=== PATIENT | female | born 1990 | race Caucasian/White ===

== ENCOUNTER 2017-10-17 15:27 | Emergency (ER) | payer OTHER ==
--- NOTE | 2017-10-17 15:35 | PDOC ---
Rapid Medical Evaluation Time Seen by Provider: 10/17/17 15:32 Medical Evaluation: Allergies Allergy/AdvReac Type Severity Reaction Status Date / Time PEANUTS Allergy Difficulty Uncoded 10/28/14 13:13 Breathing I have performed a brief in-person evaluation of this patient. The patient presents with a chief complaint of: upper abdominal pain after eating x a few months; patient is [address] Jeong wants her gallbladder ultrasounded Pertinent physical exam findings: none I have ordered the following: labs, gallbladder ultrasound The patient will proceed to the ED for further evaluation.
[2017-10-17 15:37] VITALS: TEMP 98.3; BMI 34.7
--- NOTE | 2017-10-17 16:44 | PDOC ---
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 Jeong, for evaluation of right upper quadrant pain for approximately 1 month. The patient reports first noticing RUQ pain about 1 month ago after eating. Patient describes her pain as a pressure, intermittent, and nonradiating, which she rates an 8/10. Patient reports her episodes typically last 1 hour. Patient reports visiting her OB yesterday, where she brought up her RUQ pain. Today, patient reports speaking to Dr. Jeong, who recommended patient follow up in the ED for an US of her gallbladder. Patient denies any associated nausea, vomiting, diarrhea, or constipation. She denies any flank pain, dysuria, hematuria, frequency, urgency , vaginal bleeding or discharge. She denies any recent fever, chills, or joint aches. She denies any chest pain, shortness of breath, diaphoresis, palpitations , or lower extremity edema. She denies any recent travel or sick contacts Allergies: NKDA Past Surgical History: None reported. Social History: Non smoker. No ETOH or recreational drug use. OBGYN: Dr. Jeong <Papito Salcedo - Last Filed: 10/17/17 18:34> <Vika Rodriguez - Last Filed: 10/17/17 18:51> - General Chief Complaint: Pain Stated Complaint: RUQ PAIN 25 WKS PREG ABD PAIN Time Seen by Provider: 10/17/17 15:32 Past History <Papito Salcedo - Last Filed: 10/17/17 18:34> - Past Medical History Asthma: Yes COPD: No - Immunization History Immunization Up to Date: No - Suicide/Smoking/Psychosocial Hx Smoking Status: No Smoking History: Never smoked Have you smoked in the past 12 months: No Number of Cigarettes Smoked Daily: 0 Information on smoking cessation initiated: No Hx Alcohol Use: No Drug/Substance Use Hx: No Substance Use Type: None <Vika Rodriguez - Last Filed: 10/17/17 18:51> - Past Medical History Allergies/Adverse Reactions: Allergies Allergy/AdvReac Type Severity Reaction Status Date / Time PEANUTS Allergy Difficulty Uncoded 10/17/17 15:32 Breathing Home Medications: Ambulatory Orders NK [No Known Home Medication] 10/17/17 Review of Systems - Review of Systems Able to Perform ROS?: Yes Comments:: 10/17/17 17:06 GENERAL/CONSTITUTIONAL: No fever or chills. No weakness. HEAD, EYES, EARS, NOSE AND THROAT: No change in vision. No ear pain or discharge. No sore throat. CARDIOVASCULAR: No chest pain or shortness of breath. RESPIRATORY: No cough, wheezing, or hemoptysis. GASTROINTESTINAL: +Right upper quadrant pain. No nausea, vomiting, diarrhea or constipation. GENITOURINARY: No dysuria, frequency, or change in urination. MUSCULOSKELETAL: No joint or muscle swelling or pain. No neck or back pain. SKIN: No rash NEUROLOGIC: No headache, vertigo, loss of consciousness, or change in strength/ sensation. ENDOCRINE: No increased thirst. No abnormal weight change. HEMATOLOGIC/LYMPHATIC: No anemia, easy bleeding, or history of blood clots. ALLERGIC/IMMUNOLOGIC: No hives or skin allergy. <Papito Salcedo - Last Filed: 10/17/17 18:34> *Physical Exam - Vital Signs Last Vital Signs Temp Pulse Resp BP Pulse Ox 98.3 F 99 H 18 114/59 100 10/17/17 15:33 10/17/17 15:33 10/17/17 15:33 10/17/17 15:33 10/17/17 15:33 - Physical Exam Comments: 10/17/17 17:06 GENERAL: Awake, alert, and fully oriented, in no acute distress HEAD: No signs of trauma EYES: PERRLA, EOMI, sclera anicteric, conjunctiva clear ENT: Auricles normal inspection, hearing grossly normal, nares patent, oropharynx clear without exudates. Moist mucosa NECK: Normal ROM, supple, no lymphadenopathy, JVD, or masses LUNGS: Breath sounds equal, clear to auscultation bilaterally. No wheezes, and no crackles HEART: Regular rate and rhythm, normal S1 and S2, no murmurs, rubs or gallops ABDOMEN: Tenderness to palpation to the right upper quadrant, but no guarding or rebound. Soft, normoactive bowel sounds. No masses EXTREMITIES: Normal range of motion, no edema. No clubbing or cyanosis. No cords, erythema, or tenderness NEUROLOGICAL: Cranial nerves II through XII grossly intact. Normal speech, normal gait SKIN: Warm, Dry, normal turgor, no rashes or lesions noted. <SalcedoTrishjennifer - Last Filed: 10/17/17 18:34> - Vital Signs Last Vital Signs Temp Pulse Resp BP Pulse Ox 98.3 F 99 H 18 114/59 100 10/17/17 15:33 10/17/17 15:33 10/17/17 15:33 10/17/17 15:33 10/17/17 15:33 <Vika Rodriguez - Last Filed: 10/17/17 18:51> ED Treatment Course - LABORATORY CBC & Chemistry Diagram: 10/17/17 17:50 10/17/17 17:50 - RADIOLOGY Radiograph Interpretation: 10/17/17 18:34 EXAM: US INTERPRETED BY: Dr. Munroe REVIEWED BY: Dr. Rodriguez IMPRESSION: 1. A single live intrauterine gestation with sonographic biometry concordant with the provided estimated gestational age. 2. The brain and ventricles are not visualized. This could be because of technical limitation. Please correlate with dedicated anatomy survey to better evaluate the intracranial anatomy. EXAM: US Gallbladder INTERPRETED BY: Dr. Munroe REVIEWED BY: Dr. Rodriguez IMPRESSION: The liver is normal in size, measuring 12.2 cm in length with normal hepatic echotexture. No discrete hepatic mass lesion identified. The gallbladder is not hydropic. No evidence of cholelithiasis, gallbladder wall thickening or pericholecystic fluid. There is no evidence of intrahepatic or extrahepatic biliary ductal dilatation. A proximal extrahepatic bile duct measures 3 mm in diameter. The pancreas is obscured by bowel gas and cannot be assessed. The right kidney is normal in size measuring 9.7 cm in length with normal cortical echotexture and no hydronephrosis. No free fluid identified in the right upper quadrant of the abdomen. The portal vein is patent, where imaged , with hepatopedal flow. The the upper abdominal aorta and IVC are not visualized. SUMMARY: No evidence of cholelithiasis, acute cholecystitis or biliary ductal dilatation. <Papito Salcedo - Last Filed: 10/17/17 18:34> - LABORATORY CBC & Chemistry Diagram: 10/17/17 17:50 10/17/17 17:50 - RADIOLOGY Radiology Studies Ordered: Category Date Time Status US(SINGLE) [US] Stat Ultrasound 10/17/17 16:37 Ordered <Vika Rodriguez - Last Filed: 10/17/17 18:51> Medical Decision Making - Medical Decision Making 10/17/17 17:22 Pt presents to the ED complaining of a one month history of RUQ pain that occurs primarily after eating. Denies fevers, nausea or vomiting. Patient is 25 weeks . Differential includes muscular pain, cholelithiasis, less likely pyleonephritis. Will check labs, UA and RUQ US to rule out cholelithiasis, other biliary pathology or pyleonephritis. PAtient has not had US for this since anatomy scan prior to the onset of the pain, so will check transabdominal US as well. <Vika oRdriguez - Last Filed: 10/17/17 18:51> *DC/Admit/Observation/Transfer - Attestations Scribe Attestion: 10/17/17 17:06 Documentation prepared by Papito Salcedo, acting as medical receptionist for Vika Rodriguez MD. <Papito Salcedo - Last Filed: 10/17/17 18:34> - Discharge Dispostion Admit: No <Vika Rodriguez - Last Filed: 10/17/17 18:51> Diagnosis at time of Disposition: Abdominal pain affecting , antepartum - Discharge Dispostion Disposition: HOME Condition at time of disposition: Good - Referrals Referrals: Tristian Hurt MD [Primary Care Provider] - Kami Jeong MD [Staff Physician] - - Patient Instructions Printed Discharge Instructions: DI for Abdominal Pain -- Early Additional Instructions: return to the ED severe pain, vaginal bleeding or discharge, pain with fever, pain or burning with urination, other new or changing symptoms.
[2017-10-17 18:06] LABS: BASO % 0.4 % (0-2.0); EOS % 0.4 % (0-4.5); HEMATOCRIT 35.7 % (32.4-45.2); HEMOGLOBIN 11.9 GM/dL (10.7-15.3); LYMPH % 20.7 % (8-40); MCH 31.8 pg (25.7-33.7); MCHC 33.4 g/dl (32.0-36.0); MEAN PLT VOLUME 9.8 fl (7.5-11.1); NEUT % 70.5 % (42.8-82.8); PLATELET COUNT 200 K/MM3 (134-434); RBC 3.76 M/mm3 (3.60-5.2); RDW 14.5 % (11.6-15.6); WHITE BLOOD COUNT 11.8 K/mm3 (4.0-10.0)
[2017-10-17 18:23] LABS: URINE APPEARANCE SLCLOUDY; URINE BILIRUBIN NEGATIVE (NEGATIVE); URINE BLOOD NEGATIVE (NEGATIVE); URINE COLOR YELLOW; URINE GLUCOSE (UA) NEGATIVE (NEGATIVE); URINE KETONE NEGATIVE (NEGATIVE); URINE LEUK ESTERASE NEGATIVE (NEGATIVE); URINE NITRITE NEGATIVE (NEGATIVE); URINE PROTEIN NEGATIVE (NEGATIVE); URINE UROBILINOGEN NEGATIVE mg/dL (0.2-1.0)
[2017-10-17 18:27] LABS: ALBUMIN 2.7 g/dl (3.4-5.0); ALK PHOS 90 U/L (45-117); ANION GAP 8 (8-16); BILIRUBIN,TOTAL 0.3 mg/dL (0.2-1.0); BLOOD UREA NITROGEN 5 mg/dL (7-18); CALCIUM 8.8 mg/dL (8.5-10.1); CHLORIDE 108 mmol/L (98-107); CO2 25 mmol/L (21-32); CREATININE 0.6 mg/dL (0.55-1.02); GLUCOSE,RANDOM 73 mg/dL (74-106); LIPASE 155 U/L (73-393); POTASSIUM 4.1 mmol/L (3.5-5.1); SGOT/AST 14 U/L (15-37); SGPT/ALT 29 U/L (12-78); SODIUM 141 mmol/L (136-145); TOT PROT 6.2 g/dl (6.4-8.2)
[2017-10-17 19:31] VITALS: BP 115/67; PULSE 85
== END 2017-10-17 19:17 | disposition home or self-care (01) ==
LOC: JER 15:27
DX: O26.892 Other specified pregnancy related conditions, second trimester (principal); R10.13 Epigastric pain; Z3A.25 25 weeks gestation of pregnancy
CPT/HCPCS: 36415; 76705-TC; 76801-TC; 80053; 81003; 83690; 85025; 99283-25

== ENCOUNTER 2018-01-25 08:00 | Inpatient (IN) | payer OTHER ==
[2018-01-25 08:53] VITALS: BMI 39.0
[2018-01-25 09:07] LABS: BASO % 0.3 % (0-2.0); HEMATOCRIT 32.2 % (32.4-45.2); HEMOGLOBIN 10.7 GM/dL (10.7-15.3); LYMPH % 22.2 % (8-40); MCH 29.3 pg (25.7-33.7); MCHC 33.2 g/dl (32.0-36.0); MEAN CELL VOLUME 88.2 fl (80-96); MEAN PLT VOLUME 11.5 fl (7.5-11.1); NEUT % 68.5 % (42.8-82.8); PLATELET COUNT 162 K/MM3 (134-434); RBC 3.65 M/mm3 (3.60-5.2); WHITE BLOOD COUNT 8.3 K/mm3 (4.0-10.0)
[2018-01-25 09:19] LABS: PROTHROMBIN TIME (PATIENT) 11.3 SEC (9.7-13.0)
[2018-01-25 09:21] LABS: ACTIVATED PTT 20.9 SECONDS (26.9-34.4)
[2018-01-25 09:56] LABS: ANION GAP 7 (8-16); BLOOD UREA NITROGEN 9 mg/dL (7-18); CALCIUM 8.8 mg/dL (8.5-10.1); CHLORIDE 111 mmol/L (98-107); CO2 24 mmol/L (21-32); CREATININE 0.7 mg/dL (0.55-1.02); GLUCOSE,RANDOM 87 mg/dL (74-106); POTASSIUM 4.3 mmol/L (3.5-5.1); SODIUM 142 mmol/L (136-145)
[2018-01-25] MEDS ORDERED: BUTORPHANOL TARTRATE 1 MG/ML VIAL IVPB ONE (10:06)
[2018-01-25] MEDS ORDERED: PROMETHAZINE HCL 25 MG/1 ML VIAL IVPUSH ONE (10:06)
[2018-01-25] MEDS ORDERED: DINOPROSTONE 10 MG VAGINAL SUPPOSITORY VG ONE (10:08)
[2018-01-25] MEDS: ELECTROLYTE-148 SOLN 1,000 ML IV SCH ×2 (14:40→17:51)
[2018-01-25] MEDS ORDERED: OXYTOCIN 15 UNITS in 0.9% NS 15 UNIT/250 ML INFUS.BAG IVPB SCH (22:30)
[2018-01-25] MEDS ORDERED: TUBERCULIN PPD 5 TU/0.1ML SYRINGE (IN PATIENT USE ONLY) ID ONE (22:45)
[2018-01-25] MEDS ORDERED: BUTORPHANOL TARTRATE 1 MG/ML VIAL ONE ×2 (23:10)
[2018-01-25] MEDS ORDERED: PROMETHAZINE HCL 25 MG/1 ML VIAL ONE (23:10)
[2018-01-26] MEDS: ELECTROLYTE-148 SOLN 1,000 ML IV SCH ×2 (01:15→09:30)
[2018-01-26] MEDS ORDERED: FENTANYL/BUPIVACAINE/NS/PF - PCEA - 50 ML DISP.SYRIN EP ONE ×3 (04:35→14:39)
[2018-01-26] MEDS ORDERED: NALOXONE HCL 0.4 MG/ML VIAL IVPUSH PRN (05:14)
[2018-01-26] MEDS ORDERED: FENTANYL/BUPIVACAINE/NS/PF - PCEA - 50 ML DISP.SYRIN EP SCH (05:15)
--- NOTE | 2018-01-26 07:51 | HP ---
Past Medical History - Primary Care Physician PCP:: Kami Jeong - Admission Chief Complaint: Induction of labor History of Present Illness: 27 yo admitted for induction of labor at 40 week due to pruritis History Source: Patient Limitations to Obtaining History: No Limitations - Past Medical History ...: 1 ...Para: 0 ...LMP: 04/20/17 ... Weeks Gestation by Dates: 40.0 ...EDC by Dates: 01/25/18 ...EDC by Sono: 01/18/18 - Past Surgical History Past Surgical History: Yes: None Hx Myomectomy: No Hx Transabdominal Cerclage: No - Smoking History Smoking history: Never smoked Have you smoked in the past 12 months: No Aproximately how many cigarettes per day: 0 - Alcohol/Substance Use Hx Alcohol Use: No Home Medications - Allergies Allergies/Adverse Reactions: Allergies Allergy/AdvReac Type Severity Reaction Status Date / Time No Known Drug Allergies Allergy Verified 01/25/18 09:06 PEANUTS Allergy Difficulty Uncoded 01/25/18 08:42 Breathing - Home Medications Home Medications: Ambulatory Orders Vit 108/Iron/Folic AC [ One Tablet] 1 tab PO DAILY 01/25/18 Review of Systems - Review of Systems Constitutional: reports: No Symptoms Eyes: reports: No Symptoms HENT: reports: No Symptoms Neck: reports: No Symptoms Cardiovascular: reports: No Symptoms Respiratory: reports: No Symptoms Gastrointestinal: reports: No Symptoms Genitourinary: reports: No Symptoms Breasts: reports: No Symptoms Reported Musculoskeletal: reports: No Symptoms Integumentary: reports: No Symptoms Neurological: reports: No Symptoms Endocrine: reports: No Symptoms Hematology/Lymphatic: reports: No Symptoms Psychiatric: reports: No Symptoms Physical Exam - Maternity Vital Signs: Vital Signs Temperature 98.9 F 01/26/18 06:05 Pulse Rate 82 01/26/18 07:30 Respiratory Rate 17 01/26/18 07:30 Blood Pressure 130/61 01/26/18 07:30 O2 Sat by Pulse Oximetry (%) 100 01/26/18 07:30 Constitutional: Yes: Well Nourished, No Distress Eyes: Yes: WNL HENT: Yes: WNL Neck: Yes: WNL Cardiovascular: Yes: WNL, Regular Rate and Rhythm Lungs: Clear to auscultation Breast(s): Yes: WNL - Abdominal Exam/OB Fundal Height: 40 Number of Fetuses: Single Presentation: Vertex Contractions: No Monitor Mode: External Category: I - Vaginal Exam/OB Dilatation (cm): 50 Effacement (%): 1 Amniotic Membrane Status: Intact Presentation: Vertex/Position - Physical Exam Musculoskeletal: Yes: WNL Extremities: Yes: WNL - Labs Lab Results: CBC, BMP 01/25/18 08:52 01/25/18 08:52 Hemorrhage Risk Assessment - Risk Factors Risk Score: 0 Risk Level: Low Risk Problem List - Problems (1) Elective induction of labor planned Code(s): [id number] - (2) 40 weeks gestation of Code(s): Z3A.40 - 40 WEEKS GESTATION OF (3) Pruritic folliculitis of Code(s): O99.89 - OTH DISEASES AND CONDITIONS COMPL PREG/CHLDBRTH; L73.9 - FOLLICULAR DISORDER, UNSPECIFIED Assessment/Plan IUP at 40 week pruritic dermatitis elective induction Plan Cervidil pitocin in am
--- NOTE | 2018-01-26 07:54 | PN ---
Ante-Partal Exam - Subjective Subjective: Pt emotional after cerividil Vital Signs: Vital Signs Temperature 98.9 F 01/26/18 06:05 Pulse Rate 90 01/26/18 07:45 Respiratory Rate 17 01/26/18 07:45 Blood Pressure 122/60 01/26/18 07:45 O2 Sat by Pulse Oximetry (%) 100 01/26/18 07:45 Headache: No Visual changes: No Right upper quadrant pain: No - Contractions Contractions: Yes Regularity: Irregular Intensity: Moderate Monitor Mode: External - Exam during Labor Category: I Monitor Accelerations: Present Monitor Decelerations: None Presentation: Vertex - Intrapartum Hemorrhage Risk Risk Score: 0 Risk Level: Low Risk - Assessment/Plan Assessment/Plan: iup at 40 week elective induction pruritis dermatitis Plan Pitocin
[2018-01-26] MEDS ORDERED: OXYTOCIN 30 UNITS in 0.9% NS 30 UNIT/500 ML INFUS.BAG IVPB SCH (08:00)
--- NOTE | 2018-01-26 08:06 | PN ---
Ante-Partal Exam - Subjective Subjective: Pt sp cervidil yestersay now on pitocin pt happy after epidural Vital Signs: Vital Signs Temperature 98.9 F 01/26/18 06:05 Pulse Rate 90 01/26/18 07:45 Respiratory Rate 17 01/26/18 07:45 Blood Pressure 122/60 01/26/18 07:45 O2 Sat by Pulse Oximetry (%) 100 01/26/18 07:45 Bleeding: No Headache: No Visual changes: No Right upper quadrant pain: No - Exam during Labor Category: I Monitor Accelerations: Present Exam: Vaginal Dilatation (cm): 3-4 cm Effacement (%): 100 Amniotic Membrane Status: Ruptured Amniotic Fluid: Clear Presentation: Vertex Station: -1 - Intrapartum Hemorrhage Risk Risk Score: 0 Risk Level: Low Risk - Assessment/Plan Assessment/Plan: Active labor s/p epidural Cat1 primagravida Plan pitocin cntinue continue present management
[2018-01-26] MEDS ORDERED: LIDO 2%/EPI 1:200000 PRESRVFRE (20 ML SDVIAL) ONE (16:30)
[2018-01-26] MEDS ORDERED: LIDOCAINE HCL 1% PRESERVATIVE FREE - 30ML VIAL ONE (18:06)
[2018-01-26] MEDS ORDERED: BENZOCAINE 20% 57 GM BOTTLE TP PRN (19:00)
[2018-01-26] MEDS ORDERED: BISACODYL 10 MG SUPP.RECT RC PRN (19:00)
[2018-01-26] MEDS ORDERED: WITCH HAZEL 50% (TUCKS) 40 PAD/JAR PAD TP PRN (19:00)
[2018-01-26] MEDS ORDERED: METHYLERGONOVINE MALEATE 0.2 MG/1 ML AMP IM PRN (19:00)
[2018-01-26] MEDS ORDERED: BENZOCAINE 28 GM HEMORRHOIDAL OINTMENT PR PRN (19:00)
--- NOTE | 2018-01-26 19:00 | PN ---
Delivery - Delivery Vaginal Delivery: No Problems, Spontaneous Type of Anesthesia: Local, Epidural Episiotomy/Laceration: 2nd degree Delivery, Single - Stages of Labor Placenta: Yes: Spontaneous - Condition of Infant Infant Gender: Female Position: OA - [place] Feeding Plan Initial Plan: Elected not to breastfeed exclusively throughout hospitalization
[2018-01-26 19:40] LABS: ARTERIAL BLOOD GAS BASE EXCESS -6.4 meq/l (-2-2); ARTERIAL BLOOD GAS PCO2 44.5 mmHg (35-45); ARTERIAL BLOOD GAS pH 7.28 (7.35-7.45)
[2018-01-26 19:45] LABS: ARTERIAL BLD GAS O2 SATURATION 30.7 % (90-98.9); ARTERIAL BLOOD GAS PO2 19.7 mmHg (80-100)
[2018-01-26 19:46] LABS: VENOUS PC02 31.9 mmHg (38-52); VENOUS PH 7.39 (7.32-7.42); VENOUS PO2 28.5 mmHg (28-48)
[2018-01-26] MEDS ORDERED: ACETAMINOPHEN 325 MG TABLET (FP) ONE (19:54)
[2018-01-26] MEDS ORDERED: IBUPROFEN 600 MG TABLET (FP) PO ONE (19:54)
[2018-01-26] MEDS: IBUPROFEN 600 MG TABLET (FP) PO PRN (20:00)
[2018-01-26] MEDS: ACETAMINOPHEN 325 MG TABLET (FP) PO PRN (20:00)
[2018-01-26] MEDS ORDERED: SENNOSIDES/DOCUSATE COMBO (SENNA PLUS) TABLET (UD) PO SCH (22:00)
[2018-01-26 23:17] LABS: HEMATOCRIT 21.3 % (32.4-45.2); MCH 28.1 pg (25.7-33.7); MCHC 31.7 g/dl (32.0-36.0); MEAN CELL VOLUME 88.7 fl (80-96); MEAN PLT VOLUME 11.1 fl (7.5-11.1); PLATELET COUNT 137 K/MM3 (134-434); RDW 16.2 % (11.6-15.6); WHITE BLOOD COUNT 18.9 K/mm3 (4.0-10.0)
[2018-01-26 23:19] LABS: HEMOGLOBIN 6.8 GM/dL (10.7-15.3)
[2018-01-26 23:35] LABS: INR 1.12 (0.82-1.09); PROTHROMBIN TIME (PATIENT) 12.7 SEC (9.7-13.0)
[2018-01-26 23:38] LABS: ACTIVATED PTT 21.8 SECONDS (26.9-34.4)
[2018-01-26] MEDS ORDERED: oxyCODONE HCL 5 MG TABLET PO PRN (23:40)
[2018-01-27 08:52] LABS: BASO % 0.2 % (0-2.0); EOS % 0.1 % (0-4.5); HEMATOCRIT 29.3 % (32.4-45.2); HEMOGLOBIN 9.9 GM/dL (10.7-15.3); LYMPH % 9.4 % (8-40); MCH 29.1 pg (25.7-33.7); MCHC 33.6 g/dl (32.0-36.0); MEAN CELL VOLUME 86.5 fl (80-96); MEAN PLT VOLUME 11.2 fl (7.5-11.1); MONO % 3.5 % (3.8-10.2); NEUT % 86.8 % (42.8-82.8); PLATELET COUNT 120 K/MM3 (134-434); RBC 3.39 M/mm3 (3.60-5.2); RDW 15.4 % (11.6-15.6)
[2018-01-27] MEDS: IBUPROFEN 600 MG TABLET (FP) PO PRN (16:37)
[2018-01-27] MEDS: ACETAMINOPHEN 325 MG TABLET (FP) PO PRN (16:38)
[2018-01-27] MEDS ORDERED: diphenhydrAMINE HCL 25 MG CAPSULE (FP) PO PRN (17:50)
[2018-01-27] MEDS ORDERED: CLOTRIMAZOLE/BETAMET DIPROP 15 GM TUBE TP SCH (22:00)
[2018-01-28 11:05] VITALS: BP 100/55; PULSE 98; TEMP 97.9
[2018-01-28] MEDS ORDERED: DIPHTH,PERTUSS(ACELL),TET 0.5 ML DISP.SYRIN IM ONE (11:30)
--- NOTE | 2018-01-28 11:43 | DS ---
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 Signs: Vital Signs Temperature 97.9 F 01/28/18 10:00 Pulse Rate 98 H 01/28/18 10:00 Respiratory Rate 18 01/28/18 10:00 Blood Pressure 100/55 01/28/18 10:00 O2 Sat by Pulse Oximetry (%) 100 01/26/18 20:45 Constitutional: Yes: Well Nourished, No Distress Respiratory: Yes: WNL Gastrointestinal: Yes: WNL, Soft, Abdomen, Obese ....Post : Yes: Uterus firm, Uterus non-tender Musculoskeletal: Yes: WNL Extremities: Yes: WNL Neurological: Yes: WNL, Alert, Oriented Labs: CBC, BMP 01/27/18 08:00 01/25/18 08:52 Delivery - Delivery Vaginal Delivery: No Problems, Spontaneous Type of Anesthesia: Local, Epidural Episiotomy/Laceration: 2nd degree Delivery, Single - Stages of Labor Date 1st Stage Initiatied: 01/26/18 Time 1st Stage Initiated: 23:00 Date 2nd Stage Initiated: 01/26/18 Time 2nd Stage Initiated: 18:10 Date of Delivery: 01/26/18 Time of Delivery: 18:31 Time Placenta Delivered: 18:35 Placenta: Yes: Spontaneous - 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 Present: No Gender: Female Weight: 6 lb 13 oz Position: OA Total Hours ROM (Hrs/Mins): 10 hours 55 minutes - 1 Minute Total Score: 9 5 Minutes Total Score: 9 - Feeding Plan Initial Plan: Elected not to breastfeed exclusively throughout hospitalization Discharge Summary Reason For Visit: CERVICAL INDUCTION Current Active Problems 40 weeks gestation of (Acute) Elective induction of labor planned (Acute) Pruritic folliculitis of (Acute) Procedures: Principal: Normal vaginal delivery Condition: Good - Instructions Diet, Activity, Other Instructions: Physical activity Resume your normal everyday activity as tolerated no heavy lifting or exercise until seen by your surgeon. You may walk unlimited eda of and climb stairs. You may resume driving the car when you feel safe and comfortable behind the wheel. No sexual activity as instructed. Wound care If you have a bandage, leave it on, and keep dry for 48-72 hours. After that time discard the outer bandage. If they are tapes on the skin under the out of bandage leave them in place. They will peel off in the next 7 to 10 days. Do Not Peel them off. You may shower the day after surgery. If there are tapes present on the skin, you may shower over them. Diet There are no dietary restrictions. Eat healthy, high-fiber foods. Drink 6 to 8 glasses of liquid each day. This will assist in keeping your bowels are regular. Pain management You may take Tylenol or acetaminophen or Ibuprofen (for example, Motrin, Advil etc.) from my pain prescription medication is ordered should be taken as prescribed for moderate to severe pain. Call MD for any of the following: Severe pain not relieved by medication Fever of 101 or higher Excessive bleeding or drainage on dressing Inability to urinate Disposition: HOME - Home Medications Comprehensive Discharge Medication List: Ambulatory Orders Vit 108/Iron/Folic AC [ One Tablet] 1 tab PO DAILY 01/25/18
== END 2018-01-28 14:30 | disposition home or self-care (01) | DRG 775 ==
LOC: JLDR 08:00 → J3W 01-26 20:30
PROVIDERS: ADMIT Obstetrics & Gynecology; ATTEND Obstetrics & Gynecology
PROC: 10E0XZZ Delivery of Products of Conception, External Approach (ICD-10-PCS; principal; 2018-01-26)
PROC: 0KQM0ZZ Repair Perineum Muscle, Open Approach (ICD-10-PCS; 2018-01-26)
DX: O48.0 Post-term pregnancy (principal); O70.1 Second degree perineal laceration during delivery; Z3A.40 40 weeks gestation of pregnancy; Z37.0 Single live birth
CPT/HCPCS: 36415; 36430; 36600; 59409; 80048; 82803; 85025; 85027; 85610; 85730; 86593; 86850; 86900; 86901; 86922; 90715; P9038; P9058

== ENCOUNTER 2022-02-11 08:00 | Inpatient (IN) | payer BC, OTHER ==
[2022-02-20] MEDS ORDERED: PROMETHAZINE HCL 25 MG/1 ML VIAL IVPUSH ONE (08:22)
[2022-02-20] MEDS ORDERED: BUTORPHANOL TARTRATE 1 MG/ML VIAL IVPB PRN (08:22)
[2022-02-20] MEDS ORDERED: ELECTROLYTE-148 SOLN 1,000 ML IV SCH (08:30)
[2022-02-20 08:43] VITALS: BMI 38.8
[2022-02-20] MEDS ORDERED: OXYTOCIN 30 UNITS in 0.9% NS 30 UNIT/500 ML INFUS.BAG IVPB SCH (08:45)
[2022-02-20 09:12] LABS: INR 1.05 (0.83-1.09); PROTHROMBIN TIME (PATIENT) 12.1 SEC (9.7-13.0)
[2022-02-20 09:15] LABS: ACTIVATED PTT 28.1 SECONDS (25.2-36.5)
[2022-02-20 09:22] LABS: BASO % 0.4 % (0-2.0); EOS % 0.1 % (0-4.5); HEMATOCRIT 30.9 % (32.4-45.2); HEMOGLOBIN 10.1 GM/dL (10.7-15.3); LYMPH % 15.2 % (8-40); MCH 25.1 pg (25.7-33.7); MCHC 32.6 g/dl (32.0-36.0); MEAN CELL VOLUME 77.1 fl (80-96); MEAN PLT VOLUME 9.8 fl (7.5-11.1); MONO % 5.8 % (3.8-10.2); NEUT % 78.5 % (42.8-82.8); PLATELET COUNT 152 10^3/uL (134-434); RBC 4.01 M/mm3 (3.60-5.2); RDW 21.1 % (11.6-15.6)
[2022-02-20 09:33] LABS: CALCIUM 8.8 mg/dL (8.5-10.1)
[2022-02-20 09:34] LABS: BLOOD UREA NITROGEN 6.4 mg/dL (7-18)
[2022-02-20 09:37] LABS: CREATININE 0.6 mg/dL (0.55-1.3)
[2022-02-20 10:06] LABS: ANISOCYTOSIS 0; MACROCYTOSIS 0
[2022-02-20] MEDS ORDERED: BUPIVACAINE HCL/PF 0.25% (2.5MG/ML) 10 ML VIAL ONE (11:08)
[2022-02-20] MEDS: FENTANYL/BUPIVACAINE/NS/PF - PCEA - 50 ML DISP.SYRIN EP SCH (11:45)
[2022-02-20] MEDS ORDERED: OXYTOCIN 20 UNITS in 0.9% NS 20 UNIT/1,000 ML INFUS.BAG IV ONE (12:13)
[2022-02-20] MEDS ORDERED: LIDOCAINE HCL 1% PRESERVATIVE FREE - 30ML VIAL ONE (12:25)
[2022-02-20] MEDS ORDERED: IBUPROFEN 600 MG TABLET (FP) PO ONE (12:41)
[2022-02-20] MEDS: IBUPROFEN 600 MG TABLET (FP) PO PRN ×2 (12:45→20:42)
[2022-02-20] MEDS ORDERED: NALOXONE HCL 0.4 MG/ML VIAL IVPUSH PRN (13:15)
[2022-02-20 13:25] LABS: CORD BASE EXCESS -6.1 mmol/L (0-2); CORD HCO3 17.7 mmHg (20-29); CORD PCO2 30.3 mmHg (30-78); CORD pH 7.385 (7.14-7.44)
[2022-02-20] MEDS ORDERED: ACETAMINOPHEN 325 MG TABLET (FP) PO PRN (14:05)
[2022-02-20] MEDS ORDERED: BENZOCAINE 28 GM HEMORRHOIDAL OINTMENT TP PRN (14:05)
[2022-02-20] MEDS ORDERED: BENZOCAINE 20% 57 GM BOTTLE TP PRN (14:05)
[2022-02-20] MEDS ORDERED: WITCH HAZEL 50% (TUCKS) 40 PAD/JAR PAD TP PRN (14:05)
[2022-02-20] MEDS ORDERED: oxyCODONE HCL 5 MG TABLET PO PRN (14:05)
[2022-02-20] MEDS ORDERED: METHYLERGONOVINE MALEATE 0.2 MG/1 ML AMP IM PRN (14:05)
[2022-02-20] MEDS ORDERED: BISACODYL 10 MG SUPP.RECT RC PRN (14:05)
[2022-02-20] MEDS ORDERED: OXYTOCIN 20 UNITS in 0.9% NS 20 UNIT/1,000 ML INFUS.BAG IV SCH (14:15)
[2022-02-20] MEDS: FERROUS SO4 325 MG TABLET (FP) PO SCH (17:36)
[2022-02-20 20:20] LABS: BASO % 0.4 % (0-2.0); LYMPH % 17.6 % (8-40); MCH 24.4 pg (25.7-33.7); MCHC 31.4 g/dl (32.0-36.0); MONO % 7.1 % (3.8-10.2); NEUT % 74.9 % (42.8-82.8); PLATELET COUNT 188 10^3/uL (134-434); RBC 4.11 M/mm3 (3.60-5.2); RDW 21.6 % (11.6-15.6); WHITE BLOOD COUNT 11.3 K/mm3 (4.0-10.0)
[2022-02-20 20:36] LABS: ALBUMIN 2.1 g/dl (3.4-5.0); CALCIUM 8.4 mg/dL (8.5-10.1)
[2022-02-20 20:37] LABS: BLOOD UREA NITROGEN 5.4 mg/dL (7-18)
[2022-02-20 20:48] LABS: BILIRUBIN,TOTAL 0.5 mg/dL (0.2-1); CREATININE 0.6 mg/dL (0.55-1.3); PHOSPHOROUS 2.8 mg/dL (2.5-4.9); TOT PROT 5.1 g/dl (6.4-8.2)
[2022-02-21 08:01] LABS: BASO % 0.6 % (0-2.0); EOS % 0.2 % (0-4.5); HEMATOCRIT 29.8 % (32.4-45.2); HEMOGLOBIN 9.5 GM/dL (10.7-15.3); LYMPH % 22.8 % (8-40); MCH 24.9 pg (25.7-33.7); MCHC 31.8 g/dl (32.0-36.0); MEAN CELL VOLUME 78.3 fl (80-96); MEAN PLT VOLUME 10.4 fl (7.5-11.1); MONO % 6.5 % (3.8-10.2); NEUT % 69.9 % (42.8-82.8); PLATELET COUNT 142 10^3/uL (134-434); RBC 3.81 M/mm3 (3.60-5.2); RDW 21.8 % (11.6-15.6); WHITE BLOOD COUNT 9.6 K/mm3 (4.0-10.0)
[2022-02-21] MEDS: FERROUS SO4 325 MG TABLET (FP) PO SCH ×3 (08:22→17:28)
[2022-02-21] MEDS ORDERED: DIPHTH,PERTUSS(ACELL),TET 0.5 ML DISP.SYRIN IM ONE (10:00)
[2022-02-21] MEDS: IBUPROFEN 600 MG TABLET (FP) PO PRN ×2 (10:30→21:16)
[2022-02-21] MEDS: PRENATAL VITAMINS W/ FOLIC ACID TABLET (FP) PO SCH (10:30)
[2022-02-21] MEDS: FENTANYL/BUPIVACAINE/NS/PF - PCEA - 50 ML DISP.SYRIN EP SCH (20:11)
[2022-02-21] MEDS ORDERED: SENNOSIDES/DOCUSATE COMBO (SENNA PLUS) TABLET (UD) PO PRN (22:00)
[2022-02-22] MEDS: FERROUS SO4 325 MG TABLET (FP) PO SCH ×2 (08:18→13:13)
[2022-02-22] MEDS: PRENATAL VITAMINS W/ FOLIC ACID TABLET (FP) PO SCH (09:40)
[2022-02-22 11:48] VITALS: BP 116/62; PULSE 58; TEMP 98.4
== END 2022-02-22 14:30 | disposition home or self-care (01) | DRG 807 ==
LOC: JLDR 02-20 07:20 → J3W 02-20 14:45
PROVIDERS: ADMIT Obstetrics & Gynecology; ATTEND Obstetrics & Gynecology
PROC: 0HQ9XZZ Repair Perineum Skin, External Approach (ICD-10-PCS; principal; 2022-02-20)
PROC: 10E0XZZ Delivery of Products of Conception, External Approach (ICD-10-PCS; 2022-02-20)
DX: O99.02 Anemia complicating childbirth (principal); Z37.0 Single live birth; O70.0 First degree perineal laceration during delivery; Z3A.40 40 weeks gestation of pregnancy; O75.89 Other specified complications of labor and delivery; R07.89 Other chest pain; F41.9 Anxiety disorder, unspecified; D50.9 Iron deficiency anemia, unspecified
CPT/HCPCS: 36415; 36600; 59409; 71275-TC; 80048; 80053; 82803; 83735; 84100; 84484; 85025; 85379; 85610; 85730; 86780; 86850; 86900; 86901; 90715; 93005; 93010; 93306-TC; C9803-CS; Q9967; U0003; U0005

== ENCOUNTER 2024-11-13 04:33 | Emergency (ER) | payer OTHER ==
[2024-11-13 04:43] VITALS: BP 113/58; PULSE 109; RESP 18; TEMP 99.1; BMI 34.2
[2024-11-13] MEDS ORDERED: KETOROLAC TROMETHAMINE 30 MG/1 ML VIAL ONE (04:56)
[2024-11-13] MEDS: SODIUM CHLORIDE 1,000 ML IV ONE (05:08)
[2024-11-13] MEDS: KETOROLAC TROMETHAMINE 30 MG/1 ML VIAL IVPUSH ONE (05:08)
[2024-11-13 05:32] LABS: HEMATOCRIT 40.7 % (32.4-45.2); HEMOGLOBIN 13.6 GM/dL (10.7-15.3); MCH 30.8 pg (25.7-33.7); MCHC 33.4 g/dl (32.0-36.0); MEAN CELL VOLUME 92.3 fl (80-96); PLATELET COUNT 215 10^3/uL (134-434); RBC 4.41 M/mm3 (3.60-5.2); WHITE BLOOD COUNT 7.6 K/mm3 (4.0-10.0)
[2024-11-13 06:40] LABS: POTASSIUM 3.7 mmol/L (3.5-5.1)
[2024-11-13 06:42] LABS: CALCIUM 8.8 mg/dL (8.5-10.1)
[2024-11-13 06:43] LABS: ALBUMIN 3.5 g/dl (3.4-5.0); BLOOD UREA NITROGEN 11.2 mg/dL (7-18); MAGNESIUM 1.9 mg/dL (1.8-2.4)
[2024-11-13 06:46] LABS: CREATININE 0.8 mg/dL (0.55-1.3)
[2024-11-13 06:47] LABS: TOT PROT 6.8 g/dl (6.4-8.2)
== END 2024-11-13 07:08 | disposition home or self-care (01) ==
LOC: FER 04:33
PROC: 3E0333Z Introduction of Anti-inflammatory into Peripheral Vein, Percutaneous Approach (ICD-10-PCS; principal; 2024-11-13)
PROC: 3E0337Z Introduction of Electrolytic and Water Balance Substance into Peripheral Vein, Percutaneous Approach (ICD-10-PCS; 2024-11-13)
DX: R19.7 Diarrhea, unspecified (principal); R10.9 Unspecified abdominal pain
CPT/HCPCS: 36415; 80053; 83735; 85027; 99284-25